=== PATIENT | female | born 1955 | race Caucasian/White ===

== ENCOUNTER 2017-06-24 07:50 | Day surgery (SDC) | payer MEDICAID ==
[~2017-06-24] VITALS: Ht 152.4 cm; Wt 63.0 kg
[~2017-06-24 07:50] MED LIST: ASPI-1159 PO; CALC0.5C10 PO; CALC260T6 PO; CHOL200026 PO; CYAN1TAB43 PO; DOCU-155 PO; LORA10TA7 PO; LOSA50TA20 PO; METO25TA6 PO; NEPVIT PO; OMEP40CA34 PO; RANI150T7 PO; REN800 PO
[2017-06-24] MEDS ORDERED: BALANCED SALT IRRIG SOLN COMB1 500ML OP ONE (08:00)
[2017-06-24 08:48] LABS: BASOPHILS % 1.9 % (0.0-2.0); EOSINOPHILS % 3.8 % (0.0-5.0); HEMATOCRIT. 30.6 % (36.0-48.0); HEMOGLOBIN. 9.8 g/dL (12.0-16.0); MEAN CORPUSCULAR HEMOGLOBIN 29.7 pg (28.0-32.0); MEAN CORPUSCULAR VOLUME 93.1 fL (81.0-99.0); MEAN PLATELET VOLUME 7.7 fl (7.4-10.4); MONOCYTES % 12.6 % (2.0-8.0); NEUTROPHILS % 63.7 % (40.0-76.0); PLATELET 172 x1000/uL (130-400); RED BLOOD CELL COUNT 3.29 mill/uL (4.2-5.4); RED CELL DISTRIBUTION WIDTH 18.9 % (11.6-14.6)
[2017-06-24] MEDS ORDERED: TROPICAMIDE 1% OPHTH DROPS 15ML RIGHTEYE ONE (08:50)
[2017-06-24] MEDS ORDERED: PHENYLEPHRINE HCL 10% OPHTH DROPS 5ML RIGHTEYE ONE (08:50)
[2017-06-24] MEDS ORDERED: CYCLOPENTOLATE HCL 1% OPHTH DROPS 2ML RIGHTEYE ONE (08:50)
[2017-06-24] MEDS ORDERED: SODIUM CHLORIDE 0.9% 500 ML IV NR (09:15)
[2017-06-24] MEDS ORDERED: HYALURONATE SODIUM 14 MG/ML 0.85ML SYRINGE IO ONE (11:30)
[2017-06-24] MEDS ORDERED: PROPOFOL 200MG/20ML VIAL IV ONE (11:46)
[2017-06-24] MEDS ORDERED: ONDANSETRON HCL 4MG/2ML VIAL IV PRN (12:00)
[2017-06-24] MEDS ORDERED: MEPERIDINE HCL/PF 25MG/ML CPJ IV PRN (12:00)
[2017-06-24] MEDS ORDERED: LABETALOL HCL 20MG/4ML CARPUJECT IV PRN (12:00)
[2017-06-24] MEDS ORDERED: BALANCED SALT IRRIG SOLN 15ML ONE (12:14)
[2017-06-24] MEDS ORDERED: TETRACAINE 0.5% OPHTH DROPS 4ML ONE (12:14)
[2017-06-24] MEDS ORDERED: PREDNISOLONE ACETATE 1% OPHTH DROPS 1ML ONE (12:14)
[2017-06-24] MEDS ORDERED: LIDOCAINE HCL/PF 2% 20 MG/ML 10ML VIAL ONE (12:14)
[2017-06-24] MEDS ORDERED: NEO/POLYMYX B SULF/DEXAMETH OPHTH OINT 3.5GM ONE (12:14)
[2017-06-24] MEDS ORDERED: CIPROFLOXACIN 0.3% OPHTH SOLN 2.5ML ONE (12:14)
== END 2017-06-24 13:30 ==
LOC: OR 07:50
PROVIDERS: ATTEND Ophthalmology
DX: H25.9 Unspecified age-related cataract (principal); I12.0 Hypertensive chronic kidney disease with stage 5 chronic kidney disease or end stage renal disease; N18.6 End stage renal disease; J40 Bronchitis, not specified as acute or chronic; K21.9 Gastro-esophageal reflux disease without esophagitis; K59.09 Other constipation; E66.3 Overweight; I25.10 Atherosclerotic heart disease of native coronary artery without angina pectoris; I42.8 Other cardiomyopathies; D53.9 Nutritional anemia, unspecified; E78.4 Other hyperlipidemia; Z99.2 Dependence on renal dialysis
CPT/HCPCS: 36415; 66984; 80048; 85025; 93005; J3490; J7040; V2632; J2704